=== PATIENT | male | born 1990 | race African-American/Black ===

== ENCOUNTER 2024-10-30 20:28 | Emergency (ER) | payer OTHER ==
[2024-10-30 20:34] VITALS: BP 142/79; PULSE 82; RESP 18; TEMP 98.3; BMI 26.6
== END 2024-10-30 23:10 | disposition home or self-care (01) ==
LOC: JERFT 20:28
DX: H60.501 Unspecified acute noninfective otitis externa, right ear (principal); H92.01 Otalgia, right ear; H93.8X1 Other specified disorders of right ear
CPT/HCPCS: 99283-25